=== PATIENT | male | born 1945 | race Caucasian/White ===

== ENCOUNTER 2020-08-16 12:24 | Day surgery (SDCO) | payer MEDICARE ==
[~2020-08-16 12:24] MED LIST: AZITHROMYCIN250 MG PO; CARDURA8 MG PO; LEVAQUIN750 MG PO; TAMIFLU75 MG PO; ZOFRAN4 MG PO
[2020-08-16 13:14] LABS: BASOPHIL 0.4 % (0-2); HCT 45.2 % (42.0-52.0); HGB 16.2 g/dl (13.2-18.0); LYMPHOCYTE 27.2 % (15-48); MCH 32.1 pg (25.0-31.0); MCHC 35.8 g/dL (32.0-36.0); MCV 89.5 fL (78.0-100.0); MONOCYTE 6.7 % (0-12); MPV 9.7 fL (6.0-9.5); NEUTROPHIL 60.8 % (41-80); NRBC 0; PLT 203 K/uL (150-400); RBC 5.05 M/uL (4.70-6.00); RDW 11.9 % (11.5-14.0); WBC 7.4 K/uL (4.0-10.5)
[2020-08-16 13:29] LABS: ALBUMIN 4.2 g/dL (3.4-5.0); BILIRUBIN - TOTAL 0.8 mg/dL (0.2-1.0); BUN/CREAT RATIO (CALC) 18.8 RATIO; CREATININE 0.8 mg/dL (0.67-1.17); GLOBULIN (CALCULATION) 3.4 g/dL; POTASSIUM 3.9 mmol/L (3.5-5.1); TOTAL PROTEIN 7.6 g/dL (6.4-8.2)
[2020-08-16 13:46] LABS: LACTIC ACID 2.5 mmol/L (0.4-1.9)
[2020-08-16] MEDS ORDERED: CIPRO500 M1 PO (17:12)
[2020-08-16] MEDS ORDERED: ONDANSETRON HCL4 MG PO (17:12)
[2020-08-16] MEDS ORDERED: METRONIDAZOLE500 MG PO (17:12)
[2020-08-17 06:00] LABS: BASOPHIL 0.2 % (0-2); EOSINOPHIL 0.1 % (0-7); HCT 41.8 % (42.0-52.0); HGB 14.5 g/dl (13.2-18.0); LYMPHOCYTE 13.7 % (15-48); MCH 31.8 pg (25.0-31.0); MCHC 34.7 g/dL (32.0-36.0); MCV 91.7 fL (78.0-100.0); MONOCYTE 6.9 % (0-12); MPV 9.7 fL (6.0-9.5); NEUTROPHIL 78.8 % (41-80); NRBC 0; PLT 198 K/uL (150-400); RBC 4.56 M/uL (4.70-6.00); RDW 11.9 % (11.5-14.0); WBC 9.8 K/uL (4.0-10.5)
[2020-08-17 06:18] LABS: ALBUMIN 3.5 g/dL (3.4-5.0); BILIRUBIN - TOTAL 0.7 mg/dL (0.2-1.0); BUN/CREAT RATIO (CALC) 17.2 RATIO; CREATININE 0.87 mg/dL (0.67-1.17); GLOBULIN (CALCULATION) 2.8 g/dL; POTASSIUM 3.9 mmol/L (3.5-5.1); TOTAL PROTEIN 6.3 g/dL (6.4-8.2)
--- NOTE | 2020-08-17 09:30 | NUR ---
ORTHOSTATIC VITAL SIGNS FOLLOWS: LYING 143/67, HR 70 SITTING 145/71 HR 84 STANDING 153/77 HR [address] PEPPER
[2020-08-17 10:26] LABS: PRO-BNP 397 pg/mL (<125)
[2020-08-17] MEDS ORDERED: ASPIRIN EC81 MG PO (11:46)
[2020-08-17] MEDS ORDERED: LIPITOR10 MG PO (11:49)
== END 2020-08-17 12:36 | disposition home or self-care (01) ==
LOC: FER 12:24 → FMS 19:16
PROVIDERS: Allergy & Immunology Allergy; Emergency Medicine; Nurse Practitioner; ADMIT Internal Medicine
DX: I63.9 Cerebral infarction, unspecified (principal); K52.9 Noninfective gastroenteritis and colitis, unspecified; I10 Essential (primary) hypertension; E11.9 Type 2 diabetes mellitus without complications; N40.0 Benign prostatic hyperplasia without lower urinary tract symptoms; F10.11 Alcohol abuse, in remission; J32.4 Chronic pansinusitis; K44.9 Diaphragmatic hernia without obstruction or gangrene; N20.0 Calculus of kidney; I70.0 Atherosclerosis of aorta; D17.5 Benign lipomatous neoplasm of intra-abdominal organs; M51.35 Other intervertebral disc degeneration, thoracolumbar region; Z87.891 Personal history of nicotine dependence; Z79.899 Other long term (current) drug therapy; Z88.0 Allergy status to penicillin; Z88.8 Allergy status to other drugs, medicaments and biological substances; Z20.822 Contact with and (suspected) exposure to COVID-19
CPT/HCPCS: 36415; 70450; 80053; 83605; 83880; 84145; 84484; 85025; 86140; 93005; C9113; G0378; J1650; J1956; J2405; J7030; J7120; Q0169; Q9967; U0002

== ENCOUNTER 2020-09-25 11:25 | Emergency (ER) | payer MEDICARE ==
[~2020-09-25 11:25] MED LIST changes: +ASPIRIN EC81 MG PO; +CIPRO500 M1 PO; +LIPITOR10 MG PO; +METRONIDAZOLE500 MG PO; +ONDANSETRON HCL4 MG PO
[2020-09-25 12:53] LABS: BASOPHIL 0.3 % (0-2); EOSINOPHIL 3.6 % (0-7); HGB 14.4 g/dl (13.2-18.0); LYMPHOCYTE 18.2 % (15-48); MCH 31.6 pg (25.0-31.0); MCHC 35.1 g/dL (32.0-36.0); MCV 89.9 fL (78.0-100.0); MONOCYTE 6.3 % (0-12); MPV 9.3 fL (6.0-9.5); NEUTROPHIL 71.3 % (41-80); NRBC 0; PLT 163 K/uL (150-400); RBC 4.56 M/uL (4.70-6.00); RDW 11.8 % (11.5-14.0); WBC 5.8 K/uL (4.0-10.5)
[2020-09-25 13:49] LABS: ALBUMIN 3.8 g/dL (3.4-5.0); BILIRUBIN - TOTAL 0.8 mg/dL (0.2-1.0); CREATININE 0.79 mg/dL (0.67-1.17); GLOBULIN (CALCULATION) 3.3 g/dL; POTASSIUM 3.9 mmol/L (3.5-5.1); TOTAL PROTEIN 7.1 g/dL (6.4-8.2)
== END 2020-09-25 20:10 | disposition home or self-care (01) ==
LOC: FER 11:25
PROVIDERS: Emergency Medicine
DX: G45.9 Transient cerebral ischemic attack, unspecified (principal)
CPT/HCPCS: 36415; 70450; 80053; 84484; 85025; 93005; Q9967

== ENCOUNTER 2021-08-07 14:29 | Emergency (ER) | payer MEDICARE ==
[2021-08-07 17:16] LABS: BASOPHIL 0.1 % (0-2); EOSINOPHIL 0 % (0-7); LYMPHOCYTE 4.8 % (15-48); MCH 30.6 pg (25.0-31.0); MCV 89.9 fL (78.0-100.0); MONOCYTE 6.4 % (0-12); MPV 9.8 fL (6.0-9.5); NEUTROPHIL 88.2 % (41-80); NRBC 0; PLT 221 K/uL (150-400); RBC 5.23 M/uL (4.70-6.00); WBC 16.4 K/uL (4.0-10.5)
[2021-08-07 17:46] LABS: ALBUMIN 4.2 g/dL (3.4-5.0); BILIRUBIN - TOTAL 1.2 mg/dL (0.2-1.0); BUN/CREAT RATIO (CALC) 16.8 RATIO; CREATININE 1.55 mg/dL (0.67-1.17); GLOBULIN (CALCULATION) 3.9 g/dL; POTASSIUM 4.3 mmol/L (3.5-5.1); TOTAL PROTEIN 8.1 g/dL (6.4-8.2)
[2021-08-07 18:26] LABS: LACTIC ACID 2.5 mmol/L (0.4-1.9)
[2021-08-07 19:40] LABS: BILIRUBIN NEGATIVE (NEGATIVE); BLOOD 1+ Ery/uL (NEGATIVE); CLARITY CLEAR (CLEAR); COLOR YELLOW (YELLOW); GLUCOSE (U) TRACE mg/dL (NORMAL); LEUKOCYTES NEGATIVE Leu/uL (NEGATIVE); NITRITE NEGATIVE (NEGATIVE); PROTEIN TRACE (LOW) mg/dL (NEGATIVE); SPECIFIC GRAVITY 1.025 (1.001-1.030); UROBILINOGEN 0.2 mg/dL (0.2-1.0)
[2021-08-07 19:49] LABS: BACTERIA TRACE; SQUAMOUS EPITHELIAL CELLS RARE
[2021-08-07] MEDS ORDERED: CIPRO500 MG PO (21:34)
[2021-08-07] MEDS ORDERED: FLOMAX 0.4 MG0.4 MG PO (21:34)
[2021-08-07] MEDS ORDERED: PERCOCET 5-3251 EACH PO (21:34)
[2021-08-08] MEDS ORDERED: PERCOCET 7.5/321 TAB PO (12:46)
[2021-08-08] MEDS ORDERED: CIPRO500 MG PO (12:48)
[2021-08-08] MEDS ORDERED: FLOMAX 0.4 MG0.4 MG PO (12:48)
== END 2021-08-07 21:50 | disposition home or self-care (01) ==
LOC: FER 14:29
PROVIDERS: Nurse Practitioner Family
DX: N13.2 Hydronephrosis with renal and ureteral calculous obstruction (principal); I10 Essential (primary) hypertension; E11.9 Type 2 diabetes mellitus without complications; Z88.0 Allergy status to penicillin
CPT/HCPCS: 36415; 80053; 81001; 83605; 84145; 85025; 87040; J2270; J7030

== ENCOUNTER 2021-08-08 10:48 | Emergency (ER) | payer MEDICARE ==
[~2021-08-08 10:48] MED LIST changes: +CIPRO500 MG PO; +FLOMAX 0.4 MG0.4 MG PO; +PERCOCET 5-3251 EACH PO
[2021-08-08] MEDS ORDERED: PERCOCET 7.5/321 TAB PO (12:46)
[2021-08-08] MEDS ORDERED: FLOMAX 0.4 MG0.4 MG PO (12:48)
[2021-08-08] MEDS ORDERED: CIPRO500 MG PO (12:48)
== END 2021-08-08 12:55 | disposition home or self-care (01) ==
LOC: FER 10:48
DX: Z76.0 Encounter for issue of repeat prescription (principal); I10 Essential (primary) hypertension; Z88.0 Allergy status to penicillin
CPT/HCPCS: 99283

== ENCOUNTER 2021-10-05 20:11 | Emergency (ER) | payer MEDICARE ==
[~2021-10-05 20:11] MED LIST changes: +PERCOCET 7.5/321 TAB PO
[2021-10-05 20:30] LABS: BASOPHIL 0.4 % (0-2); EOSINOPHIL 1.9 % (0-7); HCT 43.6 % (42.0-52.0); HGB 15.1 g/dl (13.2-18.0); LYMPHOCYTE 22.7 % (15-48); MCH 30.8 pg (25.0-31.0); MCHC 34.6 g/dL (32.0-36.0); MCV 88.8 fL (78.0-100.0); MONOCYTE 5.9 % (0-12); MPV 9.6 fL (6.0-9.5); NEUTROPHIL 68.8 % (41-80); NRBC 0; PLT 196 K/uL (150-400); RBC 4.91 M/uL (4.70-6.00); RDW 12.1 % (11.5-14.0); WBC 7.4 K/uL (4.0-10.5)
[2021-10-05 20:38] LABS: INR 1.15 (0.9-1.2); PROTHROMBIN TIME 14.1 SECONDS (11.8-13.4); PTT 31.6 SECONDS (24.4-34.7)
[2021-10-05 20:54] LABS: ALBUMIN 4.1 g/dL (3.4-5.0); BILIRUBIN - TOTAL 0.4 mg/dL (0.2-1.0); BUN/CREAT RATIO (CALC) 14.6 RATIO; CREATININE 0.89 mg/dL (0.67-1.17); FT4 (FREE T4) 1.1 ng/dL (0.76-1.46); GLOBULIN (CALCULATION) 3.3 g/dL; POTASSIUM 3.8 mmol/L (3.5-5.1); TOTAL PROTEIN 7.4 g/dL (6.4-8.2)
[2021-10-05 21:47] LABS: CORONAVIRUS 2019 SARS-COV-2 NEGATIVE (NEGATIVE); INFLUENZA A NAA NEGATIVE (NEGATIVE)
[2021-10-08] MEDS ORDERED: CARDURA8 MG PO (22:05)
[2021-10-08] MEDS ORDERED: COZAAR50 MG PO (22:06)
[2021-10-08] MEDS ORDERED: FLOMAX 0.4 MG0.4 MG PO (22:07)
== END 2021-10-05 23:45 | disposition home or self-care (01) ==
LOC: FER 20:11
PROVIDERS: Internal Medicine
DX: I66.23 Occlusion and stenosis of bilateral posterior cerebral arteries (principal); H53.8 Other visual disturbances; T50.905A Adverse effect of unspecified drugs, medicaments and biological substances, initial encounter; I10 Essential (primary) hypertension; E11.9 Type 2 diabetes mellitus without complications; Z88.0 Allergy status to penicillin; Z79.84 Long term (current) use of oral hypoglycemic drugs; Z20.822 Contact with and (suspected) exposure to COVID-19
CPT/HCPCS: 36415; 70450; 71045; 80053; 84145; 84439; 84443; 84484; 85025; 85610; 85730; 93005; J7120; Q9967; U0002